=== PATIENT | male | born 1975 | race Two or more races ===

== ENCOUNTER 2024-12-30 08:44 | Emergency (ER) | payer OTHER ==
[~2024-12-30] VITALS: Ht 180.3 cm; Wt 108.9 kg
[2024-12-30] MEDS ORDERED: NERLYNX40 MG PO (08:58)
[2024-12-30] MEDS ORDERED: PREVACID30 M1 PO (08:59)
[2024-12-30] MEDS ORDERED: PEPCID AC20 MG PO ×2 (08:59→19:53)
[2024-12-30] MEDS ORDERED: HYOSCYAMINE SULFATE 0.125 MG TAB.SUBL ONE (10:10)
[2024-12-30] MEDS ORDERED: PROMETHAZINE HCL 50 MG/ML AMPUL IM ONE ×2 (10:11→10:15)
[2024-12-30] MEDS ORDERED: FAMOTIDINE/PF 20 MG/2 ML VIAL ONE ×2 (10:11→16:13)
[2024-12-30] MEDS ORDERED: 0.9 % SODIUM CHLORIDE 1,000 ML IV SCH (10:15)
[2024-12-30] MEDS ORDERED: FAMOTIDINE/PF 20 MG/2 ML VIAL IV PUSH ONE ×2 (10:15→15:15)
[2024-12-30] MEDS ORDERED: HYOSCYAMINE SULFATE 0.125 MG TAB.SUBL SL ONE (10:15)
[2024-12-30 10:39] LABS: HEMATOCRIT 42.3 % (39.0-48.0); HEMOGLOBIN 14.6 g/dL (13-16.00); MEAN CELL VOLUME 86.4 fL (80.0-100.00); MEAN CORPUSCULAR HEMOGLOBIN 29.9 pg (27.00-32.0); MEAN CORPUSCULAR HGB CONC 34.6 g/dl (32.0-36.0); PLATELET COUNT 285 K/uL (150-450); RED BLOOD COUNT 4.89 M/uL (4.00-6.00); RED CELL DISTRIBUTION WIDTH 13.6 % (11.5-14.5)
[2024-12-30 11:07] LABS: BILIRUBIN TOTAL 1.5 mg/dL (0.3-1.2); CALCIUM 8.5 mg/dL (8.5-10.1); CREATININE SERUM 1.19 mg/dL (0.70-1.30); GFR 64.71; GLOBULINA 3.6 G/DL (2.4-3.5); POTASSIUM 3.96 mEq/L (3.5-5.1); TOTAL PROTEIN 7.6 gm/dL (6.4-8.2)
[2024-12-30] MEDS ORDERED: MORPHINE SULFATE 4 MG/ML CARTRIDGE IV ONE (15:15)
[2024-12-30] MEDS ORDERED: MORPHINE SULFATE 2 MG/ML CARTRIDGE IV ONE (16:15)
[2024-12-30] MEDS ORDERED: ZOFRAN8 MG PO (19:53)
[2024-12-30] MEDS ORDERED: PROBIOTIC1 EAC2 PO (19:53)
[2024-12-30] MEDS ORDERED: DICY20TA PO (19:53)
== END 2024-12-30 20:00 | disposition home or self-care (01) ==
LOC: ER 08:46
PROVIDERS: Emergency Medicine
DX: K29.70 Gastritis, unspecified, without bleeding (principal); R10.9 Unspecified abdominal pain; I10 Essential (primary) hypertension; Z20.822 Contact with and (suspected) exposure to COVID-19
CPT/HCPCS: 36415; 71045; 74177; 93005; 96365; 96366; 96372; 99284; J2270; J2550; J3490 ×2; J7030; Q9965

== ENCOUNTER 2025-02-25 13:56 | Emergency (ER) | payer OTHER ==
[~2025-02-25] VITALS: Ht 177.8 cm; Wt 108.9 kg
[~2025-02-25 13:56] MED LIST: DICY20TA PO; NERLYNX40 MG PO; PEPCID AC20 MG PO; PREVACID30 M1 PO; PROBIOTIC1 EAC2 PO; ZOFRAN8 MG PO
[2025-02-25] MEDS ORDERED: NEURONTIN600 M1 PO (15:09)
[2025-02-25] MEDS ORDERED: LABETALOL HCL100 MG PO (15:11)
[2025-02-25] MEDS ORDERED: AVAPRO300 MG PO (15:11)
[2025-02-25] MEDS ORDERED: NORVASC10 MG PO (15:12)
[2025-02-25] MEDS ORDERED: AMBIEN10 MG PO (15:14)
[2025-02-25] MEDS ORDERED: ATIVAN0.5 M1 PO (15:14)
[2025-02-25] MEDS ORDERED: 0.9 % SODIUM CHLORIDE 1,000 ML IV STA (16:44)
[2025-02-25] MEDS ORDERED: METOCLOPRAMIDE HCL 5 MG/ML VIAL IM STA (16:45)
[2025-02-25] MEDS ORDERED: HYOSCYAMINE SULFATE 0.125 MG TAB.SUBL SL STA (16:46)
[2025-02-25] MEDS ORDERED: METOCLOPRAMIDE HCL 5 MG/ML VIAL ONE (17:04)
[2025-02-25] MEDS ORDERED: HYOSCYAMINE SULFATE 0.125 MG TAB.SUBL ONE (17:04)
[2025-02-25 17:29] LABS: HEMATOCRIT 40.9 % (39.0-48.0); MEAN CELL VOLUME 85.9 fL (80.0-100.00); MEAN CORPUSCULAR HEMOGLOBIN 29.3 pg (27.00-32.0); MEAN CORPUSCULAR HGB CONC 34.2 g/dl (32.0-36.0); PLATELET COUNT 261 K/uL (150-450); RED BLOOD COUNT 4.76 M/uL (4.00-6.00); RED CELL DISTRIBUTION WIDTH 13.4 % (11.5-14.5)
[2025-02-25 17:31] LABS: CREATININE SERUM 1.47 mg/dL (0.70-1.30); GFR 50.7; POTASSIUM 3.88 mEq/L (3.5-5.1)
[2025-02-25] MEDS ORDERED: CEFAZOLIN SODIUM 1,000 MG VIAL IM STA (18:00)
[2025-02-25] MEDS ORDERED: CEFAZOLIN SODIUM 1,000 MG VIAL ONE (18:02)
== END 2025-02-25 18:14 | disposition home or self-care (01) ==
LOC: ER 13:57
DX: K52.9 Noninfective gastroenteritis and colitis, unspecified (principal); R11.10 Vomiting, unspecified